=== PATIENT | male | born 1965 | race Caucasian/White ===

== ENCOUNTER 2017-03-24 10:00 | Emergency (ER) | payer OTHER ==
--- NOTE | 2017-03-24 11:09 | RAD ---
HISTORY: Right forearm injury COMPARISONS: None VIEWS: 2, Frontal and lateral views of the right forearm FINDINGS: BONE DENSITY: Normal. BONES: There is a impacted fracture of the femoral head. JOINTS: There is no arthropathy. ALIGNMENT: There is no dislocation. SOFT TISSUES: Unremarkable. OTHER FINDINGS: None. IMPRESSION: RIGHT FEMORAL HEAD FRACTURE
[2017-03-24 11:49] VITALS: BP 131/76
--- NOTE | 2017-03-24 14:18 | ED ---
Upper Extremity Pain - HPI Summary HPI Summary: Patient is otherwise healthy 52-year-old female who presents to the ED with right elbow pain after slipping and falling on the ice this morning. He endorses pain over the elbow joint, and denies any other pain associated with the injury. Endorses a mild amount of swelling, but denies any ecchymosis, color temperature changes. He takes no medications, and does not take blood thinners. He has not taken anything for relief for pain. He is able to move about the joint, but with a moderate amount of pain. Denies any forearm or shoulder pain. Denies any pain in the hand. Denies numbness, tingling. - History of Current Complaint Chief Complaint: EDExtremityUpper Stated Complaint: RIGHT ARM INJURY Time Seen by Provider: 03/24/17 10:30 Hx Obtained From: Patient Mechanism Of Injury: Blunt Trauma Onset/Duration: Started Hours Ago Timing: Constant Severity Initially: Moderate Severity Currently: Moderate Pain Location: Elbow Character: Aching Aggravating Factor(s): Flexion, Extension, Abduction, Adduction Alleviating Factor(s): Rest, Ice Associated Signs & Symptoms: Positive: Swelling Related History: Dominant Hand Right - Risk Factors Non-Orthopedic Risk Factor: Negative DVT Risk Factors: Negative Septic Arthritis Risk Factor: Negative Compartment Syndrome Risk Factors: Pain - Allergies/Home Medications Allergies/Adverse Reactions: Allergies Allergy/AdvReac Type Severity Reaction Status Date / Time NKDA Allergy See Comment Uncoded 05/17/16 13:31 PMH/Surg Hx/FS Hx/Imm Hx Previously Healthy: Yes Endocrine/Hematology History: Denies: Hx Diabetes Cardiovascular History: Denies: Hx Hypertension, Hx Pacemaker/ICD Respiratory History: Reports: Hx Sleep Apnea - evaluation for 08/2013 History: Denies: Hx Renal Disease Musculoskeletal History: Reports: Hx Orthopedic Injury - bilateral knee pain, possible meniscal problems Denies: Hx Rheumatoid Arthritis Sensory History: Denies: Hx Hearing Aid Psychiatric History: Reports: Hx Anxiety, Hx Depression Denies: Hx Panic Disorder - Surgical History Surgery Procedure, Year, and Place: TONSILECTOMY - Immunization History Hx Pertussis Vaccination: No Immunizations Up to Date: Unable to Obtain/Confirm Infectious Disease History: No Infectious Disease History: Denies: Traveled Outside the [place] in Last 30 Days - Social History Occupation: Employed Full-time Lives: With Family Alcohol Use: None Hx Substance Use: No Substance Use Type: Reports: None Hx Tobacco Use: No Smoking Status (MU): Never Smoked Tobacco Have You Smoked in the Last Year: No Review of Systems Constitutional: Negative Negative: Fever, Chills, Fatigue Eyes: Negative Cardiovascular: Negative Respiratory: Negative Genitourinary: Negative Positive: no symptoms reported, see HPI Positive: Arthralgia - right elbow Skin: Negative Positive: Other - swelling to the right elbow All Other Systems Reviewed And Are Negative: Yes Physical Exam Triage Information Reviewed: Yes Vital Signs On Initial Exam: Initial Vitals Temp Pulse Resp BP Pulse Ox 97.8 F 58 16 131/78 97 03/24/17 10:20 03/24/17 10:20 03/24/17 10:20 03/24/17 10:20 03/24/17 10:20 Vital Signs Reviewed: Yes Appearance: Positive: Well-Appearing, Well-Nourished Skin: Positive: Warm, Skin Color Reflects Adequate Perfusion, Other - Swelling to the right elbow Head/Face: Positive: Normal Head/Face Inspection Eyes: Positive: EOMI, CARLOS, Conjunctiva Clear Neck: Positive: Supple, No Lymphadenopathy Respiratory/Lung Sounds: Positive: Clear to Auscultation, Breath Sounds Present Cardiovascular: Positive: Normal, Pulses are Symmetrical in both Upper and Lower Extremities Musculoskeletal: Positive: Pain @ - Right elbow pain Neurological: Positive: Speech Normal Psychiatric: Positive: Normal, Affect/Mood Appropriate AVPU Assessment: Alert Diagnostics - Vital Signs Vital Signs Temp Pulse Resp BP Pulse Ox 03/24/17 11:48 98 F 59 18 131/76 99 03/24/17 10:20 97.8 F 58 16 131/78 97 - Laboratory Lab Statement: Any lab studies that have been ordered have been reviewed, and results considered in the medical decision making process. Course/Dx - Course Course Of Treatment: Patient is evaluated for right elbow pain after falling on the ice this morning. He believes he fell on an outstretched hand but cannot recall. Denies any head injury or loss of consciousness. There is mild amount of swelling in the right elbow joint without ecchymosis or laceration. He is able to move about the joint, but with pain. X-ray obtained which shows radial head fracture at the right elbow joint. According to up-to-date, radial head fractures require sling and follow-up with orthopedics with encouragement of mobility as soon as possible. I discussed this with the patient who agrees to keep the joint mobile as much as tolerable and will follow-up with Dr. Champagne in the orthopedic clinic this week. Sling given. - Diagnoses Provider Diagnoses: Radial head fracture, closed Discharge - Discharge Plan Condition: Stable Disposition: HOME Patient Education Materials: Elbow Fracture (ED) Referrals: Sarah Chacko MD [Primary Care Provider] - Akhil Greenwood MD [Medical Doctor] - Additional Instructions: Please follow up with Dr. Greenwood Call today for an appointment Keep the elbow in a sling until follow-up Perform active flexion-extension and pronation-supination exercises, as early motion is the most important factor in speeding recovery and maximizing long- term joint mobility Ibuprofen 600 mg 3 times daily
== END 2017-03-24 11:48 | disposition home or self-care (01) ==
LOC: ED 10:00
DX: S52.121A Displaced fracture of head of right radius, initial encounter for closed fracture (principal); W00.0XXA Fall on same level due to ice and snow, initial encounter; Y92.9 Unspecified place or not applicable
CPT/HCPCS: 99282

== ENCOUNTER 2018-12-22 21:07 | Emergency (ER) | payer OTHER ==
--- OUTSIDE RECORDS SUMMARY | 2018-12-22 21:24 | XMS REPORT | Continuity of Care Document ---
:1965 External Reference #:[id number] Author Name IONA Means Address [address] [place] [address] Care Team Providers Name Role Phone [facility] - Sleep Disorder Care Team Information Aspnet Developer [phone] Diagnostic Sarah Chacko M.D. - Family Medicine Care Team Information Aspnet Developer Unavailable Problems Active Problems Provider Date Anxiety state Eleuterio Francois M.D. Onset: 11/14/2010 Obstructive sleep apnea syndrome Sarah Chacko M.D. Onset: 10/05/2015 Impotence of organic origin Sarah Chacko M.D. Onset: 03/02/2018 Social History Type Date Description Comments Sex Unknown Tobacco Use Start: Unknown Never Smoked Cigarettes ETOH Use Denies alcohol use Recreational Drug Use Never Used Drugs Tobacco Use Start: Unknown Patient has never smoked Smoking Status Reviewed: 12/09/18 Patient has never smoked Allergies, Adverse Reactions, Alerts Description No Known Drug Allergies Medications Active Medications SIG Qnty Indications Ordering Provider Date Cialis 1 by mouth q72hrs 14tabs N52.8 Sarah Chacko M.D. 04/08/2014 10mg Tablets as directed (Brand Only) Multi-Vitamin Family [facility] 09/01/2007 [facility] [place] Immunizations CPT Code Status Date Vaccine Lot # [id number] Given 03/02/2018 Tetanus And Diptheria Adult Preservative Free [id number] >7Yrs [id number] Given 10/27/2008 Tdap Tetanus, W Pertussis [id number] Vital Signs Date Vital Result Comment 12/09/2018 2:39pm BP Systolic 130 mmHg BP Diastolic 80 mmHg Heart Rate 68 /min Body Temperature 97.3 F Height 68 inches 5'8" Weight 158.00 lb BMI (Body Mass Index) 24.0 kg/m2 03/02/2018 12:45pm BP Systolic 140 mmHg BP Diastolic 88 mmHg BP Systolic Recheck 136 mmHg BP Diastolic Recheck 86 mmHg Heart Rate 60 /min Body Temperature 98.2 F Respiratory Rate 18 /min Height 68 inches 5'8" Weight 161.00 lb BMI (Body Mass Index) 24.5 kg/m2 Results Description No Information Available Procedures Date Code Description Status 02/26/2017 15657646 Colonoscopy Completed 02/27/2016 11622125 Colonoscopy Completed Medical Devices Description No Information Available Encounters Description No Information Available Assessments Date Code Description Provider 12/09/2018 K40.90 Unilateral inguinal hernia, without obstruction IONA Means or gangrene, not specified as recurrent Plan of Treatment Future Appointment(s):04/05/2019 2:00 pm - Sarah Chacko M.D. at [id number] [place], PAK40.90 Unilateral inguinal hernia, without obstruction or gangrene, not specified as recurrentComments:See general surgeon for further evaluation and management. Emergency room for any acute pain, the bump stays stuck or you experience acute nausea/ vomiting, diarrhea.AllComments: PCMHMedication Management Patient Understands medications he's taking? Yes Are there Barriers to Adherence? No Has the patient been asked about herbal supplements and therapies, and OTC meds? Yes Care Plan1. Patient has been queried about patient's goals/preferences and functional/ lifestyle goals at relevant visits. Yes If relevant, describe: N/A2. Treatment goals as explained to the patient: above3. Are there barriers to meeting treatment goals? No If Yes, please describe:4. Self-Management goals as described to the patient: Yes As always, we strongly encourage a healthy diet and making physical activity a part of your every day life. If you have questions about how or where to start, please contact the office. Functional Status Description No Information Available Mental Status Description No Information Available Referrals Refer to Reason for Referral Status Appt Date Edgard Houston MD inguinal hernia jw Created 12/11/2018 [facility] [address] [place] [address] [address] [place] [id number] [phone]
[2018-12-22 23:12] LABS: INR 1.09 (0.82-1.09)
[2018-12-22 23:22] LABS: ALT 19 U/L (7-52); AST 19 U/L (13-39); Albumin 4.7 g/dL (3.2-5.2); Albumin/Globulin Ratio 1.8 (1-3); Alkaline Phosphatase 65 U/L (34-104); Anion Gap 3 mmol/L (2-11); BUN/Creatinine Ratio 19.3 (8-20); Blood Urea Nitrogen 16 mg/dL (6-24); C Reactive Protein 7.11 mg/L (<8.01); CO2 Carbon Dioxide 32 mmol/L (22-32); Calcium 9.7 mg/dL (8.6-10.3); Chloride 102 mmol/L (101-111); EGFR African American 116.8 (>60); EGFR Non-African American 96.5 (>60); Globulin 2.6 g/dL (2-4); Glucose 86 mg/dL (70-100); Potassium 3.9 mmol/L (3.5-5.0); Sodium 137 mmol/L (135-145); Total Protein 7.3 g/dL (6.4-8.9)
[2018-12-22 23:24] LABS: ABS Eosinophils 0.2 10^3/ul (0-0.6); ABS Lymphocytes 1.1 10^3/ul (1.0-4.8); ABS Monocytes 0.6 10^3/ul (0-0.8); ABS Neutrophils 3.8 10^3/ul (1.5-7.7); Eosinophil % 4.2 %; Hematocrit 44 % (42-52); Hemoglobin 15.2 g/dL (14.0-18.0); Lymphocyte % 18.7 %; Mean Corpuscular HGB Conc 34 g/dL (31-36); Mean Corpuscular Hemoglobin 32 pg (27-31); Mean Corpuscular Volume 94 fL (80-94); Mean Platelet Volume 9.9 fL (7.4-10.4); Nucleated Red Blood Cells % 0.1; Platelet Count 123 10^3/uL (150-450); Red Blood Count 4.69 10^6 /uL (4.18-5.48); Red Cell Distribution Width 13 % (10-15); White Blood Count 5.7 10^3/uL (3.5-10.8)
[2018-12-23 01:16] LABS: Urine Appearance Cloudy; Urine Bilirubin Negative (Negative); Urine Blood Negative (Negative); Urine Color Yellow; Urine Glucose Negative (Negative); Urine Ketones Negative (Negative); Urine Nitrite Negative (Negative); Urine Protein Negative (Negative); Urine Specific Gravity 1.021 (1.010-1.030); Urine Urobilinogen Negative (Negative)
--- NOTE | 2018-12-23 01:16 | ED ---
Abdominal Pain/Male - HPI Summary HPI Summary: Patient is a 53 y/o M presenting to the ED for a chief complaint of abdominal pain near an abdominal hernia that has worsened in the last few days. Patient admits diarrhea. Patient denies fever, vomiting, dysuria, or difficulty with urinary voiding. Patient has had an abdominal hernia diagnosed in the last month by his PCP and has been looking for a surgeon to have surgery for the hernia. Patient has an appointment with a surgeon in January. Patient has a PMHx of sleep apnea and PSHx of tonsillectomy. Medications reviewed. Allergies noted. - History of Current Complaint Chief Complaint: EDAbdPain Stated Complaint: HERNIA PER PT Time Seen by Provider: 12/23/18 00:42 Hx Obtained From: Patient Onset/Duration: Gradual Onset, Still Present Timing: Constant Severity Initially: Moderate Severity Currently: Moderate Pain Intensity: 6 Pain Scale Used: 0-10 Numeric Location: Other - Near abdominal hernia Radiates: No Aggravating Factor(s): Nothing Alleviating Factor(s): Nothing Associated Signs And Symptoms: Positive: Diarrhea. Negative: Fever, Urinary Symptoms - Negative dysuria or difficulty with urinary voiding, Vomiting - Allergies/Home Medications Allergies/Adverse Reactions: Allergies Allergy/AdvReac Type Severity Reaction Status Date / Time No Known Allergies Allergy Verified 12/23/18 03:19 Home Medications: Home Medications Multivitamin [Multiple Vitamins] 1 tab PO DAILY 12/23/18 [History Confirmed ] PMH/Surg Hx/FS Hx/Imm Hx Previously Healthy: Yes Endocrine/Hematology History: Denies: Hx Diabetes Cardiovascular History: Denies: Hx Hypercholesterolemia, Hx Hypertension, Hx Pacemaker/ICD Respiratory History: Reports: Hx Sleep Apnea - evaluation for 08/2013 History: Denies: Hx Renal Disease Musculoskeletal History: Reports: Hx Orthopedic Injury - bilateral knee pain, possible meniscal problems Denies: Hx Rheumatoid Arthritis Sensory History: Denies: Hx Legally Blind, Hx Deafness Opthamlomology History: Denies: Hx Legally Blind EENT History: Denies: Hx Deafness Psychiatric History: Reports: Hx Anxiety, Hx Depression Denies: Hx Panic Disorder - Surgical History Surgical History: Yes Surgery Procedure, Year, and Place: TONSILECTOMY Infectious Disease History: No Infectious Disease History: Denies: Traveled Outside the [place] in Last 30 Days - Family History Known Family History: Negative: Diabetes - Social History Occupation: Employed Full-time Lives: With Family Alcohol Use: None Hx Substance Use: No Substance Use Type: Reports: None Hx Tobacco Use: No Smoking Status (MU): Never Smoked Tobacco Have You Smoked in the Last Year: No Review of Systems - ROS Summary Review of Systems Summary: Tadalafil [Cialis] 2.5 mg PO SEE INSTRUCTIONS PRN 02/23/16 [History Confirmed ] Multivitamin [Multiple Vitamins] 1 tab PO DAILY 12/23/18 [History Confirmed ] Negative: Fever Positive: Abdominal Pain - Near abdominal hernia, Diarrhea. Negative: Vomiting Positive: other - Negative difficulty with urinary voiding. Negative: dysuria All Other Systems Reviewed And Are Negative: Yes Physical Exam - Summary Physical Exam Summary: General: Well-developed, Well-nourished MALE. No acute distress. HEENT: Normocephalic, Atraumatic. Eyes: Conjuctiva normal, PERRL. Ears: TMs within normal limits. Nares: (-) discharge, (-) erythema. Oropharynx: Clear, mucous membranes moist, (-) exudates. Neck: Soft, FROM, (-) lymphadenopathy, (-) thyromegaly, (-) JVD. Cardiovascular: Normal sinus rhythm, (-) murmur. Lungs: Clear to auscultation bilaterally (-) wheezes, (-) rales, (-) rhonchi. Abdomen: Soft, non-distended, (-) organomegaly, normal bowel sounds. Mild suprapubic tenderness, right inguinal defect with mild protrusion with Valsalva. Back: (-) CVA tenderness Extremities: No edema. Skin: Warm, dry, (-) rash. Neuro: Alert and oriented x3, no focal deficits. Psychiatric: Mood normal, affect normal. Triage Information Reviewed: Yes Vital Signs On Initial Exam: Initial Vitals Temp Pulse Resp BP Pulse Ox 98.4 F 77 15 140/97 99 12/22/18 21:09 12/22/18 21:09 12/22/18 21:09 12/22/18 21:09 12/22/18 21:09 Vital Signs Reviewed: Yes Procedures - Sedation Patient Received Moderate/Deep Sedation with Procedure: No Diagnostics - Vital Signs Vital Signs Temp Pulse Resp BP Pulse Ox 12/23/18 00:46 68 99 12/23/18 00:45 67 138/90 98 12/22/18 21:09 98.4 F 77 15 140/97 99 - Laboratory Lab Results: Lab Results 12/22/18 12/22/18 12/22/18 Range/Units 22:59 22:59 22:59 WBC 5.7 (3.5-10.8) 10^3/uL RBC 4.69 (4.18-5.48) 10^6 /uL Hgb 15.2 (14.0-18.0) g/dL Hct 44 (42-52) % MCV 94 (80-94) fL MCH 32 H (27-31) pg MCHC 34 (31-36) g/dL RDW 13 (10-15) % Plt Count 123 L (150-450) 10^3/uL MPV 9.9 (7.4-10.4) fL Neut % (Auto) 67.2 % Lymph % (Auto) 18.7 % Hill % (Auto) 9.7 % Eos % (Auto) 4.2 % Baso % (Auto) 0.2 % Absolute Neuts (auto) 3.8 (1.5-7.7) 10^3/ul Absolute Lymphs (auto) 1.1 (1.0-4.8) 10^3/ul Absolute Monos (auto) 0.6 (0-0.8) 10^3/ul Absolute Eos (auto) 0.2 (0-0.6) 10^3/ul Absolute Basos (auto) 0.0 (0-0.2) 10^3/ul Absolute Nucleated RBC 0.0 10^3/ul Nucleated RBC % 0.1 INR (Anticoag Therapy) 1.09 (0.82-1.09) Sodium 137 (135-145) mmol/L Potassium 3.9 (3.5-5.0) mmol/L Chloride 102 (101-111) mmol/L Carbon Dioxide 32 (22-32) mmol/L Anion Gap 3 (2-11) mmol/L BUN 16 (6-24) mg/dL Creatinine 0.83 (0.67-1.17) mg/dL Est GFR ( Amer) 116.8 (>60) Est GFR (Non-Af Amer) 96.5 (>60) BUN/Creatinine Ratio 19.3 (8-20) Glucose 86 (70-100) mg/dL Lactic Acid (0.5-2.0) mmol/L Calcium 9.7 (8.6-10.3) mg/dL Total Bilirubin 1.20 H (0.2-1.0) mg/dL AST 19 (13-39) U/L ALT 19 (7-52) U/L Alkaline Phosphatase 65 (34-104) U/L C-Reactive Protein 7.11 (<8.01) mg/L Total Protein 7.3 (6.4-8.9) g/dL Albumin 4.7 (3.2-5.2) g/dL Globulin 2.6 (2-4) g/dL Albumin/Globulin Ratio 1.8 (1-3) Lipase < 10 L (11.0-82.0) U/L Urine Color Urine Appearance Urine pH (5-9) Ur Specific [place] (1.010-1.030) Urine Protein (Negative) Urine Ketones (Negative) Urine Blood (Negative) Urine Nitrate (Negative) Urine Bilirubin (Negative) Urine Urobilinogen (Negative) Ur Leukocyte Esterase (Negative) Urine Glucose (Negative) Urine Ascorbic Acid (Negative) 12/22/18 12/23/18 Range/Units 22:59 01:05 WBC (3.5-10.8) 10^3/uL RBC (4.18-5.48) 10^6 /uL Hgb (14.0-18.0) g/dL Hct (42-52) % MCV (80-94) fL MCH (27-31) pg MCHC (31-36) g/dL RDW (10-15) % Plt Count (150-450) 10^3/uL MPV (7.4-10.4) fL Neut % (Auto) % Lymph % (Auto) % Hill % (Auto) % Eos % (Auto) % Baso % (Auto) % Absolute Neuts (auto) (1.5-7.7) 10^3/ul Absolute Lymphs (auto) (1.0-4.8) 10^3/ul Absolute Monos (auto) (0-0.8) 10^3/ul Absolute Eos (auto) (0-0.6) 10^3/ul Absolute Basos (auto) (0-0.2) 10^3/ul Absolute Nucleated RBC 10^3/ul Nucleated RBC % INR (Anticoag Therapy) (0.82-1.09) Sodium (135-145) mmol/L Potassium (3.5-5.0) mmol/L Chloride (101-111) mmol/L Carbon Dioxide (22-32) mmol/L Anion Gap (2-11) mmol/L BUN (6-24) mg/dL Creatinine (0.67-1.17) mg/dL Est GFR ( Amer) (>60) Est GFR (Non-Af Amer) (>60) BUN/Creatinine Ratio (8-20) Glucose (70-100) mg/dL Lactic Acid 0.9 (0.5-2.0) mmol/L Calcium (8.6-10.3) mg/dL Total Bilirubin (0.2-1.0) mg/dL AST (13-39) U/L ALT (7-52) U/L Alkaline Phosphatase (34-104) U/L C-Reactive Protein (<8.01) mg/L Total Protein (6.4-8.9) g/dL Albumin (3.2-5.2) g/dL Globulin (2-4) g/dL Albumin/Globulin Ratio (1-3) Lipase (11.0-82.0) U/L Urine Color Yellow Urine Appearance Cloudy Urine pH 5.0 (5-9) Ur Specific [place] 1.021 (1.010-1.030) Urine Protein Negative (Negative) Urine Ketones Negative (Negative) Urine Blood Negative (Negative) Urine Nitrate Negative (Negative) Urine Bilirubin Negative (Negative) Urine Urobilinogen Negative (Negative) Ur Leukocyte Esterase Negative (Negative) Urine Glucose Negative (Negative) Urine Ascorbic Acid * A (Negative) Result Diagrams: 12/22/18 22:59 12/22/18 22:59 Lab Statement: Any lab studies that have been ordered have been reviewed, and results considered in the medical decision making process. - Radiology Abdomen X-ray Radiology Interpretation Completed By: ED Physician Summary of Radiographic Findings: Abdomen X-ray IMPRESSION: stool and air throughout, no air fluid bubbles. Reviewed and interpreted by Dr. Russo; pending official radiology report. - CT Abdomen/Pelvis CT CT Interpretation Completed By: Radiologist Summary of CT Findings: Abdomen/Pelvis CT IMPRESSION: No CT findings to correlate with patient's symptomatology. Reviewed by ED physician. Abdominal Pain Male Course/Dx - Course Course Of Treatment: 53-year-old male with known right inguinal hernia. Presents with left lower quadrant and suprapubic abdominal discomfort. States this is different than his hernia. He has an appointment to see a surgeon regarding his hernia. He denies any systemic symptoms. Workup demonstrates no significant abnormal laboratories. Normal CAT scan of the abdomen and pelvis. Although nondiagnostic. Patient discharged home. Follow-up with PCP. Follow- up sooner for any worsening symptoms. - Diagnoses Provider Diagnoses: Abdominal pain Discharge ED - Sign-Out/Discharge Documenting (check all that apply): Patient Departure - Discharge - Discharge Plan Condition: Stable Disposition: HOME Patient Education Materials: Acute Abdominal Pain (ED) Referrals: Sarah Chacko MD [Primary Care Provider] - Additional Instructions: Please follow up with your primary care physician within three days. Please return to ED for any new or worsening symptoms. - Billing Disposition and Condition Condition: STABLE Disposition: Home - Attestation Statements Document Initiated by Stephanieibrhoda: Yes Documenting Scribe: Janis Canas Provider For Whom Alexus is Documenting (Include Credential): Kelly Russo MD Scribe Attestation: IJanis, scribed for Kelly Russo MD on 12/23/18 at 0551. Scribe Documentation Reviewed: Yes Provider Attestation: The documentation as recorded by the Janis carcamo accurately reflects the service I personally performed and the decisions made by me, Kelly Russo MD Status of Scribe Document: Viewed
[2018-12-23] MEDS ORDERED: Iohexol 300* (CONTRAST) 10 ML SDV IV ONE (01:59)
[2018-12-23 03:31] VITALS: BP 125/83
== END 2018-12-23 03:22 | disposition home or self-care (01) ==
LOC: ED 21:07
DX: R10.9 Unspecified abdominal pain (principal); R19.7 Diarrhea, unspecified; F41.9 Anxiety disorder, unspecified; G47.30 Sleep apnea, unspecified; F32.9 Major depressive disorder, single episode, unspecified; Z79.899 Other long term (current) drug therapy
CPT/HCPCS: 36415; 74018; 74177; 80053; 81003; 83605; 83690; 85025; 85610; 86140; 99282; Q9967